=== PATIENT | male | born 1960 | race Caucasian/White ===

== ENCOUNTER 2018-08-16 08:33 | Day surgery (SDC) | payer OTHER ==
[~2018-08-16] VITALS: Ht 182.9 cm; Wt 84.8 kg
[~2018-08-16 08:33] MED LIST: ACETAMINOPHEN 325 MG TAB PO PRN; CYCLOPENTOLATE 2% OPHTH SOLN 2ML BTL OD ONE; LEVO137T2 PO; LIDOCAINE 3.5 % 1ML OPHTH TOPICAL GEL OU ONE; MIDAZOLAM INJ 2 MG/2 ML VIAL (J2250) As Ordered ONE; OFLOXACIN 0.3 % (OCUFLOX) OPTH SOL 5ML OD ONE; PHENYLEPHRINE 2.5% OPHTH SOL 2ML OD ONE; PHENYLEPHRINE HCL 10 % OPHTH. SOL 5ML OD PRN; PROPARACAINE 0.5% OPHTH SOL 15ML OD PRN; TROPICAMIDE 1% OPHTH SOLN 2ML OD ONE; fentaNYL 100 MCG/2 ML INJECTION (J3010) As Ordered ONE
[2018-08-16] MEDS ORDERED: LIDOCAINE 1% SDV 5 ML VIAL As Ordered ONE (10:48)
[2018-08-16] MEDS ORDERED: POVIDONE-IODINE 5% OPHTH PREP SOL 30ML As Ordered ONE (10:48)
[2018-08-16] MEDS ORDERED: HEALON DUET PRO(HEALON 10MG/ML 0.55ML & HEALON ENDOCOAT 30MG/ML 0.85ML) As Ordered ONE (10:48)
[2018-08-16] MEDS ORDERED: BALANCED SALT IRRIGATION SOLUTION 500ML BAG (FOR OR EYE MACHINE) As Ordered ONE (10:48)
--- NOTE | 2018-08-16 11:04 | RO ---
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 PROCEDURE: Femtosecond cataract extraction with posterior chamber intraocular lens implantation and Optiwave Refractive Analysis (ORA), right eye. The lens used was [id number], 18.0 diopters. SURGEON: Brittney Kidd MD REGISTERED RESPIRATORY THERAPIST: ANESTHESIA: Topical with sedation. DESCRIPTION OF PROCEDURE: Patient was prepped and draped in usual fashion. A lid speculum was placed between the lids. The eye was fixated. A stab incision was made into the anterior chamber. 1% nonpreserved lidocaine was instilled. Then viscoelastic was instilled. The main incision was then opened with the incision inventory clerk, and the anterior capsulorrhexis was removed, was performed by the laser. The lens was then rocked to remove any gas from behind it, and then it was freely movable in the capsular bag. The phacoemulsification unit was used to groove the nucleus in two meridians. The nucleus was cracked into four quadrants. Each quadrant was removed with the phacoemulsification unit. Any remaining cortex was removed with the irrigation and aspiration (I and A) unit. The capsular bag was refilled with viscoelastic, and then the intraocular pressure measured and found to be adequate for ORA. The ORA was lowered into place, focused on the apex of the cornea, and aligned to the patient. Readings were made, and an appropriate intraocular lens was chosen from the data generated by the ORA. The lens was then injected into the eye with its design inserter and into the capsular bag. It was in great position. Any remaining viscoelastic was removed with the I and A unit. The wound was then hydrated, and balanced salt solution (BSS) and cefuroxime were instilled. Patient tolerated this procedure well and went to recovery room in stable condition.
[2018-08-16 11:15] VITALS: BP 132/71
[2018-08-16] MEDS ORDERED: KETOROLAC 0.5% OPHTH SOLN OD ONE (11:30)
[2018-08-16] MEDS ORDERED: ONDANSETRON 4MG/2ML VIAL (J2405) IV PRN (11:30)
[2018-08-16] MEDS ORDERED: TRIMETHOBENZAMIDE 300 MG CAP PO PRN (11:30)
== END 2018-08-16 11:19 | disposition home or self-care (01) ==
LOC: M SDC 08:33
PROVIDERS: ATTEND Ophthalmology
DX: H25.11 Age-related nuclear cataract, right eye (principal); E03.9 Hypothyroidism, unspecified; Z92.3 Personal history of irradiation; Z79.899 Other long term (current) drug therapy; Z88.2 Allergy status to sulfonamides
CPT/HCPCS: 66984; 92015; J2250; J3010